=== PATIENT | male | born 2000 | race Caucasian/White ===

== ENCOUNTER 2021-02-20 19:34 | Inpatient (IN) | payer BC ==
[~2021-02-20] VITALS: Ht 175.3 cm; Wt 104.3 kg
[2021-02-20] MEDS ORDERED: ZYRTEC (19:47)
[2021-02-20] MEDS ORDERED: XOPENEX HFA15 GM (19:47)
[2021-02-20] MEDS ORDERED: FLONASE 0.05%50 MCG (19:47)
[2021-02-20 19:49] VITALS: BP 121/85
[2021-02-20] MEDS ORDERED: APAP W/CODEINE1 TA2 PO (21:06)
[2021-02-20 21:14] LABS: ABSOLUTE LYMPHOCYTES 0.7 thou/uL (0.8-5.3); ABSOLUTE MONOCYTES 0.7 thou/uL (0.0-1.2); ABSOLUTE NEUTROPHILS 5.3 thou/uL (1.6-8.1); BASOPHILS 0.3 %; EOSINOPHILS 0.4 %; HEMATOCRIT 44.8 % (42.0-52.0); HEMOGLOBIN 15.6 gm/dL (14.0-18.0); LYMPHOCYTES 10.4 %; MCH 31.6 pg (26.0-34.0); MCHC 34.9 g/dL (28.0-37.0); MCV 90.7 fL (80.0-100.0); MONOCYTES 10.5 %; NUCLEATED RBCS 0 /100WBC; PLATELET COUNT* 222 thou/uL (150-400); POLYS 78.4 %; RBC 4.94 mil/uL (4.50-6.00); RDW-CV 12.7 % (10.5-14.5); WBC 6.7 thou/uL (4.0-11.0)
[2021-02-20 21:18] LABS: CALCIUM 9.2 mg/dL (8.5-10.1); POTASSIUM 3.9 mmol/L (3.5-5.1)
[2021-02-20 21:25] LABS: ALBUMIN 4.2 g/dL (3.4-5.0); TOTAL BILIRUBIN 0.8 mg/dL (<0.1-1.0); TOTAL PROTEIN 8.1 g/dL (6.4-8.2)
[2021-02-20 23:06] LABS: URINE BILIRUBIN NEGATIVE (Negative); URINE BLOOD NEGATIVE (Negative); URINE CLARITY CLEAR; URINE COLOR YELLOW; URINE GLUCOSE-RANDOM NEGATIVE (Negative); URINE KETONES NEGATIVE (Negative); URINE LEUKOCYTES-REFLEX NEGATIVE (Negative); URINE NITRITE-REFLEX NEGATIVE (Negative); URINE PROTEIN NEGATIVE (Negative); URINE SPECIFIC GRAVITY 1.015 (1.005-1.030)
[2021-02-20 23:59] LABS: CSF GLUCOSE 64 mg/dl (40-70); CSF PROTEIN 41.2 mg/dl (15-45)
[2021-02-21 01:24] LABS: CSF CLARITY CLEAR; CSF COLOR CLEAR; CSF LYMPHOCYTES 88 % (40-80); CSF MONONUCLEARS 5 % (15-45); CSF POLYS 7 % (0-6); CSF RBC 126 /mm3; VOLUME 11 ml
[2021-02-21 01:26] LABS: CSF WBC 26 /mm3 (0-10)
[2021-02-21 05:30] VITALS: BP 104/61
[2021-02-21 09:30] VITALS: BP 124/71
[2021-02-21 10:05] VITALS: BP 124/71
[2021-02-21 10:30] VITALS: BP 133/79
[2021-02-21 17:08] VITALS: BP 127/70
[2021-02-21 20:55] VITALS: BP 105/56
[2021-02-22 08:00] VITALS: BP 123/70
[2021-02-22 15:59] VITALS: BP 102/52
[2021-02-22 19:40] VITALS: BP 108/64
[2021-02-23 09:10] VITALS: BP 119/68
[2021-02-23 15:49] VITALS: BP 103/53
[2021-02-23 19:30] VITALS: BP 105/57
[2021-02-24 08:23] VITALS: BP 114/63
[2021-02-24] MEDS ORDERED: ONDANSETRON HCL4 M2 PO (10:36)
[2021-02-24] MEDS ORDERED: IBUPROFEN 800800 M1 PO (10:36)
[2021-02-24] MEDS ORDERED: PHENERGAN 25 MG25 M1 PO (10:36)
[2021-02-24] MEDS ORDERED: METHOCARBAMOL750 MG PO (10:36)
[2021-02-24] MEDS ORDERED: NORCO 10-325 T1 EACH PO (10:36)
[2021-02-24 11:54] VITALS: BP 114/63
[2021-02-25 02:06] LABS: HIV-1/HIV-2 ANTIBODY Non Reactive (Non Reactive)
== END 2021-02-24 12:56 | disposition home or self-care (01) | DRG 98 ==
LOC: M.ERS 19:34 → M.3W 02-21 02:29 → M.TBA-ER 02-21 02:29 → M.3W 02-21 10:16
PROVIDERS: Emergency Medicine; Internal Medicine; Physician Assistant; ADMIT Internal Medicine; ATTEND Internal Medicine
PROC: 009U3ZX Drainage of Spinal Canal, Percutaneous Approach, Diagnostic (ICD-10-PCS; principal; 2021-02-21)
DX: G03.9 Meningitis, unspecified (principal); T88.3XXA Malignant hyperthermia due to anesthesia, initial encounter; J45.909 Unspecified asthma, uncomplicated; G44.89 Other headache syndrome; Z20.822 Contact with and (suspected) exposure to COVID-19; Z88.2 Allergy status to sulfonamides; Z28.21 Immunization not carried out because of patient refusal